=== PATIENT | female | born 1990 | race Caucasian/White ===

== ENCOUNTER 2020-11-08 08:55 | Emergency (ER) | payer OTHER, SELFPAY | END 2020-11-08 16:55 | disposition home or self-care (01) | LOC: EXPBETH 16:54 | PROVIDERS: Emergency Provider Nurse Practitioner Family; PCP Internal Medicine | DX: J32.9 Chronic sinusitis, unspecified (principal); R09.82 Postnasal drip | CPT/HCPCS: 99203; G0463 ==